=== PATIENT | male | born 1985 | race Caucasian/White ===

== ENCOUNTER 2023-01-02 09:32 | Outpatient (CLI) | payer OTHER | END 2023-01-02 09:33 | disposition home or self-care (01) | LOC: MADLAB 09:32 | PROVIDERS: ATTEND Chiropractor | DX: E07.9 Disorder of thyroid, unspecified (principal); M19.90 Unspecified osteoarthritis, unspecified site; M51.36 Other intervertebral disc degeneration, lumbar region | CPT/HCPCS: 72070; 72100 ==